=== PATIENT | female | born 1955 | race Caucasian/White ===

== ENCOUNTER 2019-01-13 06:05 | Day surgery (SDC) | payer OTHER ==
[2019-01-12 11:35] VITALS: BMI 65.7
[2019-01-13] VITALS (10 sets, daily range): BP systolic 103–135; BP diastolic 52–64; PULSE 96–106; RESP 16–18; Ht 134.6 cm; Wt 52.8 kg
[~2019-01-13] VITALS: Ht 134.6 cm; Wt 52.8 kg
[2019-01-13] MEDS ORDERED: GLIP2.5T3 PO (06:35)
[2019-01-13] MEDS ORDERED: AMLO-147 PO (06:35)
[2019-01-13] MEDS ORDERED: METF100010 PO (06:36)
[2019-01-13] MEDS ORDERED: BENA40TA56 PO (06:36)
[2019-01-13] MEDS ORDERED: NPH,100V SQ (06:37)
[2019-01-13] MEDS ORDERED: BUPIVACAINE 0.75% (MPF) 10 ML INJ ONE (06:55)
[2019-01-13] MEDS ORDERED: NA BICARB 50 MEQ/50 ML VIAL ONE (06:55)
[2019-01-13] MEDS ORDERED: LIDOCAINE 1% (MPF) 10 ML INJ ONE (06:55)
[2019-01-13] MEDS ORDERED: EPINEPHrine 1 MG INJ ONE (06:55)
[2019-01-13] MEDS ORDERED: TIMOLOL 0.5% 5 ML OPH ONE (06:56)
[2019-01-13] MEDS ORDERED: TETRACAINE 0.5% 4 ML OPH ONE (06:56)
[2019-01-13] MEDS ORDERED: PHENYLephrine 10% 5 ML OPH ONE (06:56)
[2019-01-13] MEDS ORDERED: TOBRAMYCIN 0.3% 3.5 GM OPH OINT ONE (06:57)
[2019-01-13] MEDS ORDERED: NEPAFENAC 0.1% 3 ML OPH LEFT EYE SCH (07:00)
[2019-01-13] MEDS ORDERED: PROPOFOL 200 MG INJ ONE (07:00)
[2019-01-13] MEDS ORDERED: LIDOCAINE 2% (SDV) 5 ML INJ ONE ×2 (07:00→07:02)
[2019-01-13] MEDS ORDERED: PHENYLephrine 10% 5 ML OPH LEFT EYE SCH (07:00)
[2019-01-13] MEDS ORDERED: CYCLOPENTOLATE 2% 2 ML OPH LEFT EYE SCH (07:00)
[2019-01-13] MEDS ORDERED: MOXIFLOXACIN 0.5% 3 ML OPH LEFT EYE ONE (07:00)
--- NOTE | 2019-01-13 07:23 | PREAC ---
Date/Time of Note Date/Time of Note DATE: 01/13/19 TIME: 07:23 Anesthesia Eval and Record Evaluation Time Pre-Procedure Interview DATE: 01/13/19 TIME: 07:23 Age 63 Sex female NPO: 8 hrs Preoperative diagnosis pterygium Planned procedure L eye pterygium removal Past Medical History Past Medical History: Includes Cardio: HTN, Dyslipidemia Endo: Diabetes Surgery & Anesthesia Issues No known issue Meds Anticoagulation: No Beta Jayjay within 24 hr: No Reason Beta Jayjay not given: Pt. not on B-Jayjay Reported Medications Insulin NPH Human Isophane (Humulin N) 100 Unit/1 Ml Vial, 25 UNIT SQ QAM, VIAL 01/13/19 Metformin Hcl* (Metformin Hcl*) 1,000 Mg Tablet, 1000 MG PO WITH BREAKFAST DINNE, #60 TAB 01/13/19 Benazepril Hcl* (Benazepril Hcl*) 40 Mg Tablet, 40 MG PO DAILY, #30 TAB 01/13/19 Amlodipine Besylate* (Amlodipine Besylate*) 10 Mg Tablet, 10 MG PO DAILY, #30 TAB 01/13/19 Glipizide* (Glipizide ER*) 2.5 Mg Tab.er.24, 2.5 MG PO DAILY, TAB 01/13/19 Current Medications Cyclopentolate HCl (Cyclogyl 2% Oph) 1 drop Q5 MIN X 3 LEFT EYE ; Start 01/13/19 at 07:00 Phenylephrine HCl (Ak-Dilate 10%) 1 drop Q5 MIN X3 LEFT EYE ; Start 01/13/19 at 07:00 Nepafenac ([place] Oph) 1 drop Q5 MIN X3 LEFT EYE ; Start 01/13/19 at 07:00 Meds reviewed: Yes Allergies Coded Allergies: No Known Allergy (Unverified , 01/13/19) Allergies Reviewed: Yes Labs/Studies Labs Reviewed: Reviewed by anesthesiologist test: N/A Studies: ECG Pre-procedure Exam Last vitals Vital Signs Date Temp Pulse Resp B/P (MAP) Pulse Ox O2 O2 Flow FiO2 Time Delivery Rate 01/13/19 97.4 106 18 135/62 100 Room Air 07:03 (86) Airway: Adequate mouth opening, Adequate thyromental dist Mallampati: Mallampati II Teeth: Normal Lung: Normal Heart: Normal ASA Physical Status ASA physical status: 3 Emergency: None Planned Anesthetic General/MAC: Mask, ETT, MAC Pre-operative Attestations Prior to commencing anesthesia and surgery, the patient was re-evaluated, there was verification of: *The patient's identity *The results of appropriate recent lab work and preoperative vital signs *The above evaluation not changing prior to induction *Anesthetic plan, risk benefits, alternative and complications discussed with patient/family; questions answered; patient/family understands, accepts and wishes to proceed. RIO RUBIO Jan 13, 2019 07:23
[2019-01-13] MEDS ORDERED: FENTAnyl 50 MCG/ML VIAL IV PRN (07:30)
[2019-01-13] MEDS ORDERED: FENTAnyl 50 MCG/ML VIAL ONE (07:49)
--- NOTE | 2019-01-13 08:58 | SIPON ---
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
--- NOTE | 2019-01-13 09:30 | OPR ---
DATE OF OPERATION: 01/13/2019 PREOPERATIVE DIAGNOSIS: Senile nuclear sclerotic cataract left eye. POSTOPERATIVE DIAGNOSIS: Senile nuclear sclerotic cataract, left eye. OPERATION: [facility]man phacoemulsification with implantation of intraocular lens left eye. 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 DESCRIPTION OF PROCEDURE: Following standard preparation and draping of the patient, a lid speculum was placed for immobilization of the lids. A SuperBlade incision was made at the corneal limbal junc tion for access into the anterior chamber. Approximately 0.03 mL of nonpreserved 1% Xylocaine was in stilled into the anterior chamber, and after approximately 5 to 10 seconds, this was replaced with Vi scoat. A clear corneal incision was then made using the 3.2 mm keratome, following which an anterior circular capsulorrhexis was made. The major portion of the lens cortex and nucleus were then disloc ated from the capsular bag using hydrodissection. The KPE tip was introduced into the eye and contro lling tumbling of the lens with a 2-handed technique, the major portion of the lens cortex and nucleu s was removed, maintaining the lens in the plane of the iris. The remaining cortical material was re moved via the irrigating aspirating instrument. The capsular bag and the anterior chamber were now r eformed using Viscoat. The proper power lens was then placed in the capsular bag. The viscoelastic was then removed from the eye and the eye reformed with balanced salt solution. One 10-0 Vicryl sutu re was then used to ensure closure of the corneal incision. The eye was reformed to normal pressure using balanced salt solution. The eye and cul-de-sacs were now simply flooded with 5% Betadine solut ion. One drop of Vigamox and 1 drop of Betagan solution were instilled into the eye. A light pressu re dressing was applied, and the patient was returned to the recovery room in satisfactory condition. Dictated By: RICK OTTO/AURELIANO Conf#: [id number] DID#: [id number] CC: RICK LOGAN MD;*EndCC*
== END 2019-01-13 10:24 | disposition home or self-care (01) ==
LOC: SDS 06:05
PROVIDERS: ATTEND Ophthalmology
DX: H25.12 Age-related nuclear cataract, left eye (principal); I10 Essential (primary) hypertension; E78.5 Hyperlipidemia, unspecified; E11.9 Type 2 diabetes mellitus without complications
CPT/HCPCS: 66984; 82962; J0171; J3010; V2632; Z7512; Z7610